=== PATIENT | male | born 1975 | race Caucasian/White ===

== ENCOUNTER 2018-12-18 12:00 | Emergency (ER) | payer SELFPAY ==
[~2018-12-18] VITALS: Ht 177.8 cm; Wt 83.9 kg
[~2018-12-18 12:00] MED LIST: ACET325T9 PO; ALBU2.5V5 NEB; ALPR1TAB6 PO; AMOX1TAB58 PO; BENZ-8 PO; DOXY100C14 PO; FENT1PAT17 TD; LEVE500T56 PO; LISI-130 PO; MELA3TAB2 PO; METO25TA4 PO; OXYC1TAB22 PO; SIMV20TA3 PO; TRAZ-86 PO
[2018-12-18 12:38] VITALS: BP 132/92
[2018-12-18] MEDS ORDERED: ALBU2.5V5 NEB (13:27)
[2018-12-18] MEDS ORDERED: METO25TA4 PO (13:27)
[2018-12-18] MEDS ORDERED: BENZ100C PO (13:27)
[2018-12-18] MEDS ORDERED: LISI-334 PO (13:27)
[2018-12-18] MEDS ORDERED: TRAZ-118 PO (13:27)
[2018-12-18] MEDS ORDERED: LEVE500T56 PO (13:27)
[2018-12-18] MEDS ORDERED: SIMV20TA3 PO (13:27)
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
[2018-12-18] MEDS ORDERED: ALBU2.5V8 INH (13:42)
== END 2018-12-18 13:55 | disposition home or self-care (01) ==
LOC: ER 12:00
DX: J44.9 Chronic obstructive pulmonary disease, unspecified (principal); E78.00 Pure hypercholesterolemia, unspecified; I10 Essential (primary) hypertension; Z76.0 Encounter for issue of repeat prescription; Z88.0 Allergy status to penicillin
CPT/HCPCS: 99283

== ENCOUNTER 2019-01-14 16:46 | Emergency (ER) | payer SELFPAY ==
[~2019-01-14] VITALS: Ht 177.8 cm; Wt 80.7 kg
[~2019-01-14 16:46] MED LIST changes: +ALBU2.5V8 INH; +BENZ100C PO; +LISI-334 PO; +TRAZ-118 PO
[2019-01-14 16:50] VITALS: BP 150/99
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
[2019-01-14] MEDS ORDERED: HYDR-3164 PO (18:57)
== END 2019-01-14 19:03 | disposition home or self-care (01) ==
LOC: ER 16:46
DX: S70.11XA Contusion of right thigh, initial encounter (principal); M54.5 Low back pain; J44.9 Chronic obstructive pulmonary disease, unspecified; E78.00 Pure hypercholesterolemia, unspecified; I10 Essential (primary) hypertension; Z88.0 Allergy status to penicillin; W18.09XA Striking against other object with subsequent fall, initial encounter; Y93.89 Activity, other specified; Y92.89 Other specified places as the place of occurrence of the external cause; Y99.8 Other external cause status
CPT/HCPCS: 72100; 93971; 99284

== ENCOUNTER 2019-11-16 17:59 | Emergency (ER) | payer SELFPAY ==
[~2019-11-16] VITALS: Ht 177.8 cm; Wt 84.0 kg
[~2019-11-16 17:59] MED LIST changes: +HYDR-3164 PO; -MELA3TAB2 PO; +MELA3TAB56 PO; +SIMV20TA18 PO; -SIMV20TA3 PO; +TRAZ-123 PO; -TRAZ-86 PO
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
[2019-11-16] MEDS ORDERED: ASPIRIN CHEWABLE 81 MG TABLET. PO ONE (19:00)
[2019-11-16] MEDS ORDERED: KETOROLAC 30 MG/ML VIAL. IVP ONE (19:00)
[2019-11-16 19:04] LABS: BASO % 1 % (0-3); EOS # 0.1 x10^3/uL (0.0-0.7); EOS % 2 % (0-3); HEMATOCRIT 47.2 % (39.0-53.0); LYMPH # 1.4 x10^3/uL (1.0-4.8); LYMPH % 22 % (24-48); MEAN CORPUSCULAR HEMOGLOBIN 29 pg (25-35); MEAN CORPUSCULAR HGB CONC 34 g/dL (31-37); MEAN CORPUSCULAR VOLUME 84 fL (79-100); MONO # 0.4 x10^3/uL (0.0-1.1); MONO % 6 % (0-9); NEUT # 4.4 x10^3/uL (1.8-7.7); NEUT % 69 % (31-73); PLATELET COUNT 198 x10^3/uL (140-400); RED CELL DISTRIBUTION WIDTH 13.2 % (11.5-14.5); WHITE BLOOD COUNT 6.4 x10^3/uL (4.0-11.0)
[2019-11-16 19:15] LABS: CREATININE 0.8 mg/dL (0.7-1.3); GFR 104.1; POTASSIUM 3.7 mmol/L (3.5-5.1)
[2019-11-16 19:21] LABS: ALBUMIN/GLOBULIN RATIO 1.3 (1.0-1.7); MAGNESIUM 1.9 mg/dL (1.8-2.4); TOTAL BILIRUBIN 0.3 mg/dL (0.2-1.0); TOTAL PROTEIN 7.2 g/dL (6.4-8.2)
--- NOTE | 2019-11-16 19:52 | RAD ---
Examination: PORTABLE CHEST 1V History: Chest pain Comparison/Correlation: None Findings: Portable upright frontal view of the chest was obtained. Heart size and pulmonary vascularity are normal. No infiltrate, pleural effusion, or pneumothorax. Bony structures unremarkable. Impression: No active disease. Electronically signed by: Carlos Mosqueda MD (11/16/2019 7:49 PM) [id number]
[2019-11-16] MEDS ORDERED: MORPHINE SULFATE 2 MG/ML VIAL. IV ONE (20:15)
[2019-11-16] MEDS ORDERED: ONDANSETRON PF 4 MG/2 ML VIAL. IVP ONE (20:15)
[2019-11-16 20:19] LABS: BILIRUBIN,URINE NEGATIVE (NEG); CLARITY,URINE CLEAR; COLOR,URINE YELLOW; NITRITE,URINE NEGATIVE (NEG); PH,URINE 7.5; PROTEIN,URINE NEGATIVE (NEG-TRACE); UROBILINOGEN,URINE 0.2 mg/dL (0.2 mg/dL)
[2019-11-16 20:25] LABS: BACTERIA,URINE 0 /HPF (0-FEW); RBC,URINE 0 /HPF (0-2); WBC,URINE 0 /HPF (0-4)
[2019-11-16 21:32] VITALS: BP 141/92
--- NOTE | 2019-11-17 12:05 | EKG ---
[facility] [address] [place] [address] Test Date: 2019-11-16 Test Time: 18:36:20 Pat Name: WILIAM FRAZIER Department: Room: Gender: M Reporting Manager: : 1975 Requested By: LUCY ORONA Order Number: [id number] Reading MD: Measurements Intervals [place] Rate: 81 P: 0 RI: 122 QRS: 0 QRSD: 82 T: 18 QT: 332 QTc: 386 Interpretive Statements SINUS RHYTHM LEFTWARD AXIS NO SPECIFIC ECG ABNORMALITIES RI6.01 No previous ECG available for comparison
== END 2019-11-16 21:48 | disposition left against medical advice (07) ==
LOC: ER 17:59
DX: I10 Essential (primary) hypertension (principal); R07.89 Other chest pain; R05 Cough; J44.9 Chronic obstructive pulmonary disease, unspecified; E78.00 Pure hypercholesterolemia, unspecified; K74.60 Unspecified cirrhosis of liver; F12.90 Cannabis use, unspecified, uncomplicated; Z79.82 Long term (current) use of aspirin; Z98.890 Other specified postprocedural states; Z88.0 Allergy status to penicillin
CPT/HCPCS: 36415; 71045; 80053; 81001; 83690; 83735; 83880; 84484; 85025; 85379; 93005; 96374; 96375; 99285; J1885; J2270; J2405

== ENCOUNTER 2021-09-01 12:10 | Emergency (ER) | payer MEDICAID ==
[~2021-09-01] VITALS: Ht 177.8 cm; Wt 82.2 kg
[~2021-09-01 12:10] MED LIST changes: +DOXY-181 PO; -DOXY100C14 PO; -LISI-334 PO; +LISI20TA18 PO; +MELA3TAB4 PO; -MELA3TAB56 PO
[2021-09-01 12:31] VITALS: BP 145/95
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
--- NOTE | 2021-09-01 13:59 | RAD ---
EXAM: ULTRASOUND SOFT TISSUE NECK CLINICAL HISTORY: Anterior neck pain. COMPARISON: No priors Findings: Assessment of the anterior neck area of interest demonstrates a right jugular chain lymph n ode measuring 1.7 x 0.9 x 1.2 cm, cortical thickness normal measuring 3 mm, and intact echogenic fatt y hilum. At the left neck area of interest is a smaller jugular chain lymph node measuring 1.0 x 0.4 x 0.7 cm, cortical thickness normal measuring 2 mm, and intact echogenic fatty hilum. These lymph nod es are within the range of normal based on size short axis diameter and cortical thickness. There is no enlarged adenopathy or mass lesion documented. The thyroid was not definitively evaluated on this examination. IMPRESSION: No mass or abnormal adenopathy at the anterior neck area of interest. Electronically signed by: Tawanda Husain MD (09/01/2021 1:57 PM) [facility]
== END 2021-09-01 14:25 | disposition home or self-care (01) ==
LOC: ER 12:20
DX: M54.2 Cervicalgia (principal); J44.9 Chronic obstructive pulmonary disease, unspecified; E78.00 Pure hypercholesterolemia, unspecified; I10 Essential (primary) hypertension; G40.909 Epilepsy, unspecified, not intractable, without status epilepticus; F17.200 Nicotine dependence, unspecified, uncomplicated; Z88.0 Allergy status to penicillin
CPT/HCPCS: 76536; 99284

== ENCOUNTER 2021-09-29 11:52 | Emergency (ER) | payer MEDICAID ==
[~2021-09-29] VITALS: Ht 177.8 cm; Wt 77.6 kg
[2021-09-29 12:00] VITALS: BP 119/93
[2021-09-29] MEDS ORDERED: IV NORMAL SALINE 1000ML BAG 1,000 ML IV ONE (12:15)
[2021-09-29] MEDS ORDERED: CLINDAMYCIN HCL 150 MG CAPSULE. PO ONE (12:15)
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
[2021-09-29] MEDS ORDERED: CLIN150C16 PO ×2 (13:12→13:19)
== END 2021-09-29 13:21 | disposition home or self-care (01) ==
LOC: ER 11:52
DX: K02.9 Dental caries, unspecified (principal); K08.89 Other specified disorders of teeth and supporting structures; J44.9 Chronic obstructive pulmonary disease, unspecified; E78.00 Pure hypercholesterolemia, unspecified; I10 Essential (primary) hypertension; G40.909 Epilepsy, unspecified, not intractable, without status epilepticus; F17.200 Nicotine dependence, unspecified, uncomplicated; Z88.0 Allergy status to penicillin
CPT/HCPCS: 36415; 99283